=== PATIENT | female | born 1960 | race Caucasian/White ===

== ENCOUNTER 2023-02-23 06:33 | Outpatient (CLI) | payer MEDICARE ==
[2023-02-23] VITALS (18 sets, daily range): BP systolic 136–172; BP diastolic 59–82; PULSE 59–60; TEMP 97.7
[~2023-02-23] VITALS: Ht 162.6 cm; Wt 67.1 kg
[~2023-02-23 06:33] MED LIST: BIOTIN5000 MCG PO; CENTRUM SILVER1 TA2 PO; COUMADIN 2MG2 MG/TAB PO; KLOR-CON SPRIN10 MEQ PO; LASIX 20MG TABL20 MG PO; LEVOXYL0.1 MG PO; PRIL40 PO; VITAMIN D 50,1.25 MG PO; ZESTRIL 5MG5 MG PO
[2023-02-23] MEDS ORDERED: AMOXICILLIN 50500 MG PO (07:10)
[2023-02-23 07:36] LABS: INR 1.2 (0.8-3.0); PROTHROMBIN TIME 13.3 SECONDS (9.7-12.8)
--- NOTE | 2023-02-23 10:05 | NUR ---
PT WAS GIVEN 25 MCG OF FENTANYL AT 0822. CXR TO BE DONE 2 HOURS AFTER PROCEDURE COMPLETED
== END 2023-02-23 14:39 ==
LOC: COL.RAD 06:33
PROVIDERS: Radiology Diagnostic Radiology
DX: R93.89 Abnormal findings on diagnostic imaging of other specified body structures (principal)
CPT/HCPCS: J3010